=== PATIENT | female | born 1970 | race Caucasian/White ===

== ENCOUNTER 2022-06-03 09:56 | Day surgery (SDC) | payer OTHER ==
[2022-06-03] MEDS ORDERED: Propofol 200 MG/20 ML SDV ONE ×2 (10:04→11:17)
[2022-06-03] MEDS ORDERED: Midazolam 1 MG/ML 2 ML SDV ONE (10:04)
[2022-06-03] MEDS ORDERED: fentaNYL 50 MCG/ML SDV ONE (10:04)
[2022-06-03] MEDS ORDERED: Dextrose 5%-Lactated Ringers 1,000 ML IV SCH (10:30)
[2022-06-03 13:08] VITALS: BP 145/96; PULSE 76
== END 2022-06-03 12:45 | disposition home or self-care (01) ==
LOC: JP.SDS 09:56
PROVIDERS: ATTEND Surgery
DX: Z12.11 Encounter for screening for malignant neoplasm of colon (principal); K21.9 Gastro-esophageal reflux disease without esophagitis; Z91.018 Allergy to other foods
CPT/HCPCS: 45378; J2250; J2704; J3010; J7121